=== PATIENT | male | born 1975 ===

== ENCOUNTER 2018-07-29 20:53 | Emergency (ER) | payer OTHER ==
[~2018-07-29] VITALS: Ht 167.6 cm; Wt 77.1 kg
[2018-07-30] MEDS ORDERED: CEFUROXIME500 MG PO (03:58)
[2018-07-30] MEDS ORDERED: ZYNCOF 20-400120 ML PO (03:58)
[2018-07-30] MEDS ORDERED: NASONEX17 GM IH (03:58)
== END 2018-07-30 04:04 ==
LOC: ER 20:53
DX: J01.80 Other acute sinusitis (principal)

== ENCOUNTER 2019-01-07 11:29 | Outpatient (CLI) | payer OTHER ==
[~2019-01-07 11:29] MED LIST: CEFUROXIME500 MG PO; NASONEX17 GM IH; ZYNCOF 20-400120 ML PO
== END 2019-01-07 11:43 | disposition home or self-care (01) ==
LOC: RAD 501 11:29
DX: E03.8 Other specified hypothyroidism (principal); I10 Essential (primary) hypertension; M54.5 Low back pain; Z01.810 Encounter for preprocedural cardiovascular examination; E78.89 Other lipoprotein metabolism disorders; E11.51 Type 2 diabetes mellitus with diabetic peripheral angiopathy without gangrene; E55.9 Vitamin D deficiency, unspecified; E11.9 Type 2 diabetes mellitus without complications; G47.30 Sleep apnea, unspecified; B20 Human immunodeficiency virus [HIV] disease; Z11.4 Encounter for screening for human immunodeficiency virus [HIV]

== ENCOUNTER 2022-10-08 12:55 | Emergency (ER) | payer OTHER ==
[~2022-10-08] VITALS: Ht 167.6 cm; Wt 77.1 kg
== END 2022-10-08 16:38 | disposition home or self-care (01) ==
LOC: ER 12:55
DX: N48.1 Balanitis (principal)